=== PATIENT | male | born 1975 | race Two or more races ===

== ENCOUNTER → 2020-03-14 11:43 | Outpatient (BNVA) | payer OTHER, SELFPAY | PROVIDERS: PCP Internal Medicine; Visit Provider Internal Medicine | DX: Z76.89 Persons encountering health services in other specified circumstances (principal) ==

== ENCOUNTER 2020-08-06 11:15 | Outpatient (REF) | payer OTHER, SELFPAY ==
[2020-08-06 14:45] LABS: Alanine Aminotransferase 32 U/L (0-40); Aspartate Amino Transferase 19 U/L (5-37); Cholesterol 239 mg/dL; HDL Cholesterol 46 mg/dL; LDL Cholesterol Calculated 168 mg/dl; Triglycerides 125 mg/dL
== END 2020-08-06 11:16 | disposition home or self-care (01) ==
LOC: HO.HMGCLDS 11:15
PROVIDERS: PCP Internal Medicine; Visit Provider Internal Medicine
DX: Z00.01 Encounter for general adult medical examination with abnormal findings (principal); E78.5 Hyperlipidemia, unspecified
CPT/HCPCS: 36415; 80061; 82550; 84450; 84460

== ENCOUNTER 2021-04-23 11:43 | Outpatient (REF) | payer OTHER, SELFPAY ==
[2021-04-25 18:17] LABS: TS Negative Control Passed; TS Panel A 0; TS Panel B 0; TS Positive Control Passed; TSpotTB Negative (Negative)
== END 2021-04-23 11:44 | disposition home or self-care (01) ==
LOC: HO.HMGCLDS 11:43
PROVIDERS: PCP Internal Medicine; Visit Provider Physician Assistant Medical
DX: Z11.1 Encounter for screening for respiratory tuberculosis (principal)
CPT/HCPCS: 36415; 86481